=== PATIENT | male | born 2000 | race Caucasian/White ===

== ENCOUNTER 2018-06-20 15:59 | Emergency (ER) | payer BC ==
[~2018-06-20] VITALS: Ht 165.1 cm; Wt 83.9 kg
[~2018-06-20 15:59] MED LIST: AMOX-358 PO; AMOX2505RX; DEXM5TAB; ONDA4TAB8 PO; TRZ50T; VYVANSE 70MG
[2018-06-20 17:03] VITALS: BP 158/64
--- OUTSIDE RECORDS SUMMARY | 2018-06-20 21:19 | XMS REPORT | Continuity of Care Document ---
Author Author [facility] Organization [facility] Address Unknown Phone Unavailable Care Team Providers Care Advertising Assistant Manager Name Role Phone ERICKA FLAHERTY MD PP Insurance Providers Payer Name Policy Number Subscriber Name Relationship [facility] [id number] Sigrid Ramirez Fernando 03 Father [facility] Amerigrp [id number] Neftaly Ramirez 01 Self / Same As Patient Advance Directives Directive Response Recorded Date Advance Directives N 07/09/13 8:45pm Organ Donor N 07/09/13 8:45pm Problems No Known Problems or Medical conditions. Family History History Response Recorded Date/Time Hx Family Cancer Y GRANDMA--LEUKEMIA 03/06 4:30pm Hx Family Cardiac Disorders Y GRANDPA 03/06 4:30pm Social History History Response Recorded Date/Time Alcohol Use Denies Use 07/09/13 8:45pm Recreational Drug Use N 07/09/13 8:45pm Recent Foreign Travel N 07/09/13 8:45pm Allergies, Adverse Reactions, Alerts Allergen Type Severity Reaction Last Updated No Known Drug Allergies 07/04/08 Medications No known medications Response Recorded Date/Time Status not known Unknown Results Test Date Result Interp. Ref. Range Alanine Aminotransferase (ALT/SGPT) July 05, 2008 6: 05am 33 U/L N 30-65 Albumin July 05, 2008 6:05am 3.8 G/ DL N 3.4-5.0 Alkaline Phosphatase July 05, 2008 6:05am 172 U/L N 60-350 Amylase Level July 05, 2008 6:05am 24 U/L L 25-115 Aspartate Amino Transf (AST/SGOT) July 05, 2008 6:05am 17 U/L N 15-37 BUN/Creatinine Ratio July 05, 2008 6:05am 17 - Basophils # (Auto) July 05, 2008 6:05am 0.0 10^3/uL N 0.0-0.1 Basophils (%) (Auto) July 05, 2008 6:05am 0 % N 0-10 Blood Urea Nitrogen July 05, 2008 6:05am 10 MG/DL N 7-18 Calcium Level July 05, 2008 6:05am 9.7 MG/DL N 8.5-10.1 Carbon Dioxide Level July 05, 2008 6:05am 28 MMOL/L N 21-32 Chloride Level July 05, 2008 6:05am 98 MMOL/L L 101-110 Creatinine July 05, 2008 6:05am 0.6 MG/DL N 0.6-1.3 Eosinophils # (Auto) July 05, 2008 6:05am 0.0 10^3/uL N 0.0-0.3 Eosinophils (%) (Auto) July 05, 2008 6:05am 1 % N 0-10 Glucose Level July 05, 2008 6:05am 100 MG/DL N 70-126 Hematocrit July 05, 2008 6:05am 38 % N 32-48 Hemoglobin July 05, 2008 6:05am 13.6 G/DL N 10.9-15.8 Lymphocytes # (Auto) July 05, 2008 6:05am 1.5 X 10^3 N 1.5-6.5 Lymphocytes (%) (Auto) July 05, 2008 6:05am 24 % N 12-44 Mean Corpuscular Hemoglobin July 05, 2008 6:05am 29 PG N 25-34 Mean Corpuscular Hemoglobin Concent July 05, 2008 6: 05am 36 G/DL N 32-36 Mean Corpuscular Volume July 05, 2008 6:05am 80 FL N 75-91 Mean Platelet Volume July 05, 2008 6:05am 10.1 FL N 7.4-10.4 Monocytes # (Auto) July 05, 2008 6:05am 0.8 X 10^3 N 0.0-1.0 Monocytes (%) (Auto) July 05, 2008 6:05am 13 % H 0-12 Neutrophils # (Auto) July 05, 2008 6:05am 3.8 X 10^3 N 1.8-8.0 Neutrophils (%) (Auto) July 05, 2008 6:05am 62 % N 42-75 Platelet Count July 05, 2008 6:05am 285 10^3/uL N 130-400 Potassium Level July 05, 2008 6:05am 4.3 MMOL/L N 3.6-5.0 Red Blood Count July 05, 2008 6:05am 4.75 10^6/uL N 4.20-5.25 Red Cell Distribution Width July 05, 2008 6:05am 12.4 % N 10.0-14.5 Sodium Level July 05, 2008 6:05am 137 MMOL/L N 135-145 Total Bilirubin July 05, 2008 6:05am 0.6 MG/DL N 0.0-1.0 Total Protein July 05, 2008 6:05am 7.4 G/DL N 6.4-8.2 Urine Bacteria July 30, 2012 9:01pm NEGATIVE - Urine Bilirubin July 30, 2012 9:01pm NEGATIVE - Urine Casts July 30, 2012 9:01pm NONE - Urine Clarity July 30, 2012 9:01pm CLEAR - Urine Color July 30, 2012 9:01pm YELLOW - Urine Crystals July 30, 2012 9:01pm NONE - Urine Culture Indicated July 30, 2012 9:01pm NO - Urine Glucose (UA) July 30, 2012 9:01pm NEGATIVE - Urine Ketones July 30, 2012 9:01pm NEGATIVE - Urine Leukocyte Esterase July 30, 2012 9:01pm NEGATIVE - Urine Mucus July 30, 2012 9:01pm MODERATE H - Urine Nitrite July 30, 2012 9:01pm NEGATIVE - Urine Protein July 30, 2012 9:01pm NEGATIVE - Urine RBC July 30, 2012 9:01pm NONE / HPF - Urine Specific [place] July 30, 2012 9:01pm 1.020 - Urine Urobilinogen July 30, 2012 9:01pm NORMAL MG/DL - Urine WBC July 30, 2012 9:01pm RARE / HPF - Urine pH July 30, 2012 9:01pm 6.0 - White Blood Count July 05, 2008 6:05am 6.1 10^3/uL N 4.3-11.0 Urine RBC (Auto) July 30, 2012 9:01pm TRACE H - Encounters Encounter Location Date/Time Departed Emergency Room [facility] 8:26pm Discharged Inpatient [facility] 12: 00am
--- OUTSIDE RECORDS SUMMARY | 2018-06-20 21:20 | XMS REPORT | Continuity of Care Document ---
Author Author [facility] Organization [facility] Address Unknown Phone Unavailable Allergies Active Description Code Type Severity Reaction Onset Reported/Identified Relationship to Patient Clinical Status Yes No Known Drug Allergies [id number] Drug Allergy Unknown N/A 07/04/2008 Medications There is no data. Problems Date Dx Coded Attending Type Code Diagnosis Diagnosed By 07/30/2012 Ot 724.2 LUMBAGO 07/30/2012 Ot V04.81 ND FOR PROPHYLACTIC VACCIN AND INOCULATI 07/09/2013 BIBI GOSS MD Ot 923.20 CONTUSION OF HAND(S) 07/09/2013 BIBI GOSS MD Ot 959.4 HAND INJURY NOS 07/09/2013 BIBI GOSS MD Ot E000.8 OTHER EXTERNAL CAUSE STATUS 07/09/2013 BIBI GOSS MD Ot E888.9 FALL NOS 05/22/2015 Ot 314.01 05/29/2015 Ot 314.01 06/06/2015 KRYSTINA ONEIL, ERICKA [place] Ot 719.46 06/06/2015 KRYSTINA ONEIL, ERICKA [place] Ot V57.1 06/09/2015 KRYSTINA ONEIL, ERICKA [place] Ot 719.46 06/09/2015 KRYSTINA ONEIL, ERICKA [place] Ot V57.1 06/19/2015 KRYSTINA ONEIL, ERICKA [place] Ot 719.46 06/19/2015 KRYSTINA ONEIL, ERICKA [place] Ot V57.1 06/19/2015 KRYSTINA ONEIL, ERICKA [place] 719.46 06/19/2015 KRYSTINA ONEIL, ERICKA [place] Ot V57.1 07/03/2015 KRYSTINA ONEIL, ERICKA [place] Ot 719.46 07/03/2015 KRYSTINA ONEIL, ERICKA [place] Ot V57.1 07/10/2015 KRYSTINA ONEIL, ERICKA [place] Ot 719.46 JOINT PAIN-L/LEG 07/10/2015 ERICKA FLAHERTY MD Ot M25.569 PAIN IN UNSPECIFIED KNEE 07/10/2015 KRYSTINA ONEIL, ERICKA A Ot V57.1 PHYSICAL THERAPY NEC 07/10/2015 KRYSTINA ONEIL, ERICKA [place] Ot Z51.89 ENCOUNTER FOR OTHER SPECIFIED AFTERCARE 05/24/2016 Ot 314.01 ATTN DEFICIT W HYPERACT 05/24/2016 ERICKA ERVIN DO Ot I88.0 NONSPECIFIC MESENTERIC LYMPHADENITIS 05/24/2016 ERICKA ERVIN DO Ot K52.9 NONINFECTIVE GASTROENTERITIS AND COLITIS 05/24/2016 ERICKA ERVIN DO Ot R10.84 GENERALIZED ABDOMINAL PAIN 08/24/2016 Ot 314.01 ATTN DEFICIT W HYPERACT Procedures There is no data. Results Test Result Range Complete blood count (CBC) with automated white blood cell (WBC) differential - 05/24/16 19:14 Blood leukocytes automated count (number/volume) 17.9 10*3/uL 4.3-11.0 Blood erythrocytes automated count (number/volume) 5.46 10*6/uL 4.35-5.85 Venous blood hemoglobin measurement (mass/volume) 15.8 g/dL 13.3-17.7 Blood hematocrit (volume fraction) 44 % 40-54 Automated erythrocyte mean corpuscular volume 81 [foz_us] 80-99 Automated erythrocyte mean corpuscular hemoglobin (mass per erythrocyte) 29 pg 25-34 Automated erythrocyte mean corpuscular hemoglobin concentration measurement ( mass/volume) 36 g/dL 32-36 Automated erythrocyte distribution width ratio 12.5 % 10.0-14.5 Automated blood platelet count (count/volume) 297 10*3/uL 130-400 Automated blood platelet mean volume measurement 10.8 [foz_us] 7.4-10.4 Automated blood neutrophils/100 leukocytes 88 % 42-75 Automated blood lymphocytes/100 leukocytes 5 % 12-44 Blood monocytes/100 leukocytes 7 % 0-12 Automated blood eosinophils/100 leukocytes 0 % 0-10 Automated blood basophils/100 leukocytes 0 % 0-10 Blood neutrophils automated count (number/volume) 15.8 10*3 1.8-7.8 Blood lymphocytes automated count (number/volume) 1.0 10*3 1.0-4.0 Blood monocytes automated count (number/volume) 1.2 10*3 0.0-1.0 Automated eosinophil count 0.0 10*3/uL 0.0-0.3 Automated blood basophil count (count/volume) 0.0 10*3/uL 0.0-0.1 Comprehensive metabolic panel - 05/24/16 19:14 Serum or plasma sodium measurement (moles/volume) 139 mmol/L 135-145 Serum or plasma potassium measurement (moles/volume) 4.1 mmol/L 3.6-5.0 Serum or plasma chloride measurement (moles/volume) 106 mmol/L 98-107 Carbon dioxide 19 mmol/L 21-32 Serum or plasma anion gap determination (moles/volume) 14 mmol/L 5-14 Serum or plasma urea nitrogen measurement (mass/volume) 17 mg/dL 7-18 Serum or plasma creatinine measurement (mass/volume) 1.00 mg/dL 0.60-1.30 Serum or plasma urea nitrogen/creatinine mass ratio 17 NRG Serum or plasma glucose measurement (mass/volume) 116 mg/dL 70-105 Serum or plasma calcium measurement (mass/volume) 9.3 mg/dL 8.5-10.1 Serum or plasma total bilirubin measurement (mass/volume) 0.8 mg/dL 0.1-1.0 Serum or plasma alkaline phosphatase measurement (enzymatic activity/volume) 89 U/L 60-350 Serum or plasma aspartate aminotransferase measurement (enzymatic activity/ volume) 23 U/L 5-34 Serum or plasma alanine aminotransferase measurement (enzymatic activity/volume ) 40 U/L 0-55 Serum or plasma protein measurement (mass/volume) 7.2 g/dL 6.4-8.2 Serum or plasma albumin measurement (mass/volume) 4.4 g/dL 3.2-4.5 Serum or plasma amylase measurement (enzymatic activity/volume) - 05/24/16 19: 14 Serum or plasma amylase measurement (enzymatic activity/volume) 40 U /L 25-125 Lipase - 05/24/16 19:14 Lipase 15 U/L 8-78 Blood manual differential performed detection - 05/24/16 19:14 Blood monocytes/100 leukocytes 1 % NRG Manual blood segmented neutrophils/100 leukocytes 81 % NRG Blood band neutrophils/100 leukocytes 5 % NRG Manual blood lymphocytes/100 leukocytes 13 % NRG Manual eosinophils/100 leukocytes in nose 0 % NRG Manual blood basophils/100 leukocytes 0 % NRG Blood erythrocyte morphology finding identification NORMAL NRG Complete urinalysis with reflex to culture - 05/24/16 20:51 Urine color determination YELLOW NRG Urine clarity determination CLEAR NRG Urine pH measurement by test strip 7 5-9 Specific gravity of urine by test strip 1.005 1.016- 1.022 Urine protein assay by test strip, semi-quantitative 1+ NEGATIVE Urine glucose detection by automated test strip NEGATIVE NEGATIVE Erythrocytes detection in urine sediment by light microscopy NEGATIVE NEGATIVE Urine ketones detection by automated test strip NEGATIVE NEGATIVE Urine nitrite detection by test strip NEGATIVE NEGATIVE Urine total bilirubin detection by test strip NEGATIVE NEGATIVE Urine urobilinogen measurement by automated test strip (mass/volume) NORMAL NORMAL Urine leukocyte esterase detection by dipstick NEGATIVE NEGATIVE Automated urine sediment erythrocyte count by microscopy (number/high power field) NONE NRG Automated urine sediment leukocyte count by microscopy (number/high power field ) RARE NRG Bacteria detection in urine sediment by light microscopy NEGATIVE NRG Crystals detection in urine sediment by light microscopy NONE NRG Casts detection in urine sediment by light microscopy NONE NRG Mucus detection in urine sediment by light microscopy NEGATIVE NRG Complete urinalysis with reflex to culture NO NRG Encounters ACCT No. Visit Date/Time Discharge Status Pt. Type Provider Facility Loc./Unit Complaint [id number] 05/24/2016 18:35:00 05/24/2016 22:07:00 DIS Emergency ERICKA ERVIN DO [facility] ER ABD PAIN [id number] 07/10/2015 15:40:00 07/10/2015 16:17:00 DIS Outpatient ERICKA FLAHERTY MD [facility] REHAB R KNEE PAIN [id number] 07/09/2013 20:26:00 07/09/2013 21:32:00 DIS Emergency BIBI GOSS MD [facility] ER INJ TO HAND [id number] 05/22/2015 09:49:00 Document Registration [id number] 03/22/2011 13:41:00 Document Registration [email or web address] 07/10/2015 15:40:44 ACT Document Registration
== END 2018-06-20 17:05 | disposition home or self-care (01) ==
LOC: EDUNIT# 15:59 → ER 16:00
DX: S61.210D Laceration without foreign body of right index finger without damage to nail, subsequent encounter (principal); X58.XXXD Exposure to other specified factors, subsequent encounter